=== PATIENT | female | born 1990 | race Caucasian/White ===

== ENCOUNTER 2021-07-24 17:05 | Emergency (ER) | payer BC ==
[~2021-07-24] VITALS: Ht 160 cm; Wt 69.9 kg
[2021-07-24 17:56] VITALS: BP 135/92
--- NOTE | 2021-07-24 18:00 | NUR ---
31 Y/O FEMALE C/O N/V WITH SORE THROAT [id number]. STATES [id number]. LMP 05/19/21. DENIES PMH ALLERGIES: SULFA
[2021-07-24] MEDS ORDERED: LACTATED RINGERS 1,000 ML IV ONE (18:50)
--- NOTE | 2021-07-24 19:30 | NUR ---
Pt report given to SHONA MANZANARES. Transfer of care at this time.
--- NOTE | 2021-07-24 19:48 | NUR ---
Stacey cadet in EDM - 07/24/21 at [id number] DODD AT BEDSIDE OBTAINING US GUIDED IV AND BLOOD SAMPLE TO BE SENT TO LAB. 20G IN L AC.
--- NOTE | 2021-07-24 19:53 | NUR ---
[id number] DR DODD AT BEDSIDE OBTAINING US GUIDED IV AND BLOOD SAMPLE TO BE SENT TO LAB. 20G IN RIGHT AC.
--- NOTE | 2021-07-24 20:11 | NUR ---
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
[2021-07-24 20:13] LABS: ALBUMIN 3.5 g/dL (3.4-5.0); ANION GAP 17.4 (8-16); CARBON DIOXIDE 22.3 mmol/L (21-32); CREATININE 0.6 mg/dL (0.6-1.3); POTASSIUM 3.7 mmol/L (3.5-5.1); TOTAL BILIRUBIN 0.6 mg/dL (0.0-1.0)
[2021-07-24 20:19] LABS: BASOPHILS % (AUTO) 0.2 % (0.0-2.0); EOSINOPHILS % (AUTO) 0.2 % (0.0-4.0); HEMATOCRIT 35.8 % (36-48); HEMOGLOBIN 12.4 g/dL (12.0-16.0); LYMPHOCYTES # (AUTO) 1.3 K/uL (2.5-16.5); LYMPHOCYTES % (AUTO) 8.5 % (20.5-51.1); MEAN CORPUSCULAR HEMOGLOBIN 30 pg (27-31); MEAN CORPUSCULAR HGB CONC 35 g/dL (33-37); MEAN CORPUSCULAR VOLUME 87.2 fL (80-94); MONOCYTES # (AUTO) 1.1 K/uL (0.8-1.0); MONOCYTES % (AUTO) 7.3 % (1.7-9.3); NEUTROPHILS # (AUTO) 12.7 K/uL (1.8-7.7); NEUTROPHILS % (AUTO) 83.8 % (42.2-75.2); PLATELET COUNT (AUTO) 361 K/uL (140-450); RED BLOOD CELL COUNT(AUTO) 4.11 MIL/uL (4.20-5.40); RED CELL DISTRIBUTION WIDTH 12.7 % (11.6-13.7); WHITE BLOOD COUNT (AUTO) 15.2 K/uL (4.8-10.8)
[2021-07-24] MEDS ORDERED: diphenhydrAMINE 50 MG/ML VIAL IVP ONE (20:40)
[2021-07-24] MEDS ORDERED: METOCLOPRAMIDE 10 MG/2 ML INJ VIAL IVP ONE (20:40)
[2021-07-24 20:46] LABS: APPEARANCE,URINE CLEAR (CLEAR); BILIRUBIN,URINE NEGATIVE (NEGATIVE); BLOOD, URINE NEGATIVE (NEGATIVE); COLOR,URINE YELLOW (YELLOW); LEUKOCYTE ESTERASE ,URINE NEGATIVE (NEGATIVE); NITRITE, URINE NEGATIVE (NEGATIVE); UGLUCOSE NEGATIVE (NEGATIVE)
[2021-07-24] MEDS ORDERED: METO-485 PO (21:24)
[2021-07-24 22:02] VITALS: BP 117/79
--- NOTE | 2021-07-24 22:03 | NUR ---
Patient discharged with v/s stable. Written and verbal after care instructions given and explained. Patient alert, oriented and verbalized understanding of instructions. Ambulatory with steady gait. All questions addressed prior to discharge. ID band removed. Patient advised to follow up with PMD. Rx of REGLAN given. Patient educated on indication of medication including possible reaction and side effects. Opportunity to ask questions provided and answered.
== END 2021-07-24 22:04 | disposition home or self-care (01) ==
LOC: MED 17:05
DX: O21.8 Other vomiting complicating pregnancy (principal); O26.891 Other specified pregnancy related conditions, first trimester; R42 Dizziness and giddiness; Z3A.10 10 weeks gestation of pregnancy; Z79.899 Other long term (current) drug therapy
CPT/HCPCS: 36415; 36569; 80053; 81003; 81025; 83690; 85025; 96361; 96374; 96375; 99284; J1200; J2765; J7120